=== PATIENT | male | born 1945 | race Caucasian/White ===

== ENCOUNTER 2017-08-22 08:55 | Inpatient (IN) | payer OTHER ==
[~2017-08-22] VITALS: Ht 188 cm; Wt 99.8 kg
[~2017-08-22 08:55] MED LIST: PRILOSEC 20 MG20 MG PO
[2017-08-22 09:24] LABS: URINE BILIRUBIN NEGATIVE (Negative); URINE BLOOD NEGATIVE (Negative); URINE CLARITY CLEAR; URINE COLOR YELLOW; URINE GLUCOSE-RANDOM* NEGATIVE (Negative); URINE KETONES NEGATIVE (Negative); URINE LEUKOCYTES NEGATIVE (Negative); URINE NITRITE NEGATIVE (Negative); URINE PROTEIN (DIPSTICK) NEGATIVE (Negative); URINE UROBILINOGEN 0.2 E.U./dl (0.2-1.0)
[2017-08-22 09:49] VITALS: BP 159/69
[2017-08-22 10:16] LABS: ABSOLUTE NEUTROPHILS 5.2 thou/uL (1.4-8.2); BASOPHILS 0.9 % (0.0-2.0); EOSINOPHILS 2.4 % (0.0-3.0); HEMATOCRIT 39.4 % (42.0-52.0); HEMOGLOBIN 13.2 gm/dL (14.0-18.0); LYMPHOCYTES 22.6 % (24.0-44.0); MCH 29.4 pg (26.0-34.0); MCHC 33.4 g/dL (28.0-37.0); MCV 87.9 fL (80.0-100.0); MONOCYTES 8.4 % (1.0-8.0); PLATELET COUNT 265 thou/uL (150-400); POLYS 65.7 % (36.0-66.0); RBC 4.48 mil/uL (4.50-6.00); RDW 13.1 % (10.5-14.5); WBC 7.9 thou/uL (4.0-11.0)
[2017-08-22 10:29] LABS: CALCIUM 9.3 mg/dL (8.5-10.1); POTASSIUM 4.2 mmol/L (3.5-5.1)
[2017-08-22 12:32] VITALS: BP 179/79
[2017-08-22 16:11] VITALS: BP 179/79
[2017-08-22 16:19] VITALS: BP 164/77
[2017-08-22 17:30] VITALS: BP 182/98
[2017-08-23 03:32] VITALS: BP 137/77
[2017-08-23 05:21] LABS: ABSOLUTE NEUTROPHILS 6.3 thou/uL (1.4-8.2); BASOPHILS 0.8 % (0.0-2.0); EOSINOPHILS 3.3 % (0.0-3.0); HEMATOCRIT 38.6 % (42.0-52.0); HEMOGLOBIN 12.8 gm/dL (14.0-18.0); LYMPHOCYTES 23.1 % (24.0-44.0); MCH 29.1 pg (26.0-34.0); MCHC 33.2 g/dL (28.0-37.0); MCV 87.5 fL (80.0-100.0); MONOCYTES 9.7 % (1.0-8.0); PLATELET COUNT 254 thou/uL (150-400); POLYS 63.1 % (36.0-66.0); RBC 4.41 mil/uL (4.50-6.00); RDW 13.2 % (10.5-14.5); WBC 9.9 thou/uL (4.0-11.0)
[2017-08-23 05:33] LABS: CALCIUM 8.5 mg/dL (8.5-10.1); CREATININE 1.7 mg/dL (0.7-1.3); POTASSIUM 4.3 mmol/L (3.5-5.1)
[2017-08-23 07:04] VITALS: BP 170/91
[2017-08-23] MEDS ORDERED: FLOMAX0.4 MG PO (10:00)
[2017-08-23 10:12] VITALS: BP 170/91
== END 2017-08-23 11:36 | disposition home or self-care (01) | DRG 683 ==
LOC: ER 08:55 → EROBS 12:10 → 4E 17:24
PROVIDERS: Family Medicine; Nurse Practitioner
DX: N17.9 Acute kidney failure, unspecified (principal); N13.8 Other obstructive and reflux uropathy; I10 Essential (primary) hypertension; R33.9 Retention of urine, unspecified
CPT/HCPCS: 10084

== ENCOUNTER 2017-09-24 11:56 | Emergency (ER) | payer OTHER ==
[~2017-09-24] VITALS: Ht 190.5 cm; Wt 99.8 kg
--- NOTE | ~2017-09-24 | EKG ---
[place] [address] [facility] [place] [address] ELECTROCARDIOGRAM REPORT Name: PATI MCGOWAN WILDA [id number] Admission: 09/24/17 Attend Phys: Discharge: 09/24/17 Date of : 45 Report #: [id number] THIS REPORT FOR: //name// [facility] ED Test Date: 2017-09-24 Test Time: 12:29:33 Pat Name: PATI MCGOWAN Department: Room: Gender: M Before School Babysitter: PRANAV : 1945 Requested By: Magdy Diamond Order Number: [id number] MD: Alfred Warner Measurements Intervals [place] Rate: 90 P: 54 HI: 171 QRS: 18 QRSD: 89 T: 34 QT: 334 QTc: 409 Interpretive Statements Sinus rhythm Baseline wander in lead(s) V2 No previous ECG available for comparison Electronically Signed On 09-25-2017 8:36:54 [employer] DEVELOPMENT ENGINEER by Alfred Warner [email or web address] <ELECTRONICALLY SIGNED> By: Alfred Warner MD, [facility] 09/25/17 0836 1229 1229 Alfred Warner MD, FACC /EPI
[~2017-09-24 11:56] MED LIST changes: +FLOMAX0.4 MG PO
[2017-09-24 12:45] LABS: BASOPHILS 1.1 % (0.0-2.0); HEMATOCRIT 37.3 % (42.0-52.0); HEMOGLOBIN 12.7 gm/dL (14.0-18.0); LYMPHOCYTES 19.8 % (24.0-44.0); MCH 29.2 pg (26.0-34.0); MCV 85.9 fL (80.0-100.0); MONOCYTES 10.2 % (1.0-8.0); PLATELET COUNT 449 thou/uL (150-400); POLYS 67.9 % (36.0-66.0); RBC 4.34 mil/uL (4.50-6.00); RDW 12.8 % (10.5-14.5); WBC 10.2 thou/uL (4.0-11.0)
[2017-09-24 12:51] LABS: URINE BILIRUBIN NEGATIVE (Negative); URINE BLOOD 3+ (Negative); URINE CLARITY CLEAR; URINE COLOR YELLOW; URINE GLUCOSE-RANDOM* NEGATIVE (Negative); URINE KETONES NEGATIVE (Negative); URINE LEUKOCYTES-REFLEX 1+ (Negative); URINE NITRITE-REFLEX NEGATIVE (Negative); URINE PROTEIN (DIPSTICK) 2+ (Negative); URINE SPECIFIC GRAVITY 1.015 (1.005-1.035); URINE UROBILINOGEN 0.2 E.U./dl (0.2-1.0)
[2017-09-24 12:51] LABS: ANION GAP 6 mmol/L (7-16); BUN 22 mg/dL (7-18); CALCIUM 9.1 mg/dL (8.5-10.1); CHLORIDE 105 mmol/L (98-107); CO2 26 mmol/L (21-32); CREATININE 1.3 mg/dL (0.7-1.3); GLUCOSE 92 mg/dL (74-106); POTASSIUM 4.3 mmol/L (3.5-5.1); SODIUM 137 mmol/L (136-145)
[2017-09-24 12:58] LABS: CASTS None Seen /LPF (None Seen); CRYSTALS None Seen /LPF (None Seen); SQUAMOUS None Seen /LPF (0-3); URINE RBC >20 Many /HPF (0-2); URINE WBC-REFLEX >25 Many /HPF (0-5)
[2017-09-24 12:59] LABS: BACTERIA-REFLEX >30 Many /HPF (None Seen)
[2017-09-24 13:00] LABS: ALBUMIN 2.8 g/dL (3.4-5.0); DIRECT BILIRUBIN 0.1 mg/dL (<0.1-0.3); SGOT 23 U/L (15-37); SGPT 55 U/L (30-65); TOTAL BILIRUBIN 0.4 mg/dL (<0.1-1.0); TOTAL PROTEIN 7.5 g/dL (6.4-8.2); TROPONIN-I < 0.04 ng/mL (<0.06)
[2017-09-24] MEDS ORDERED: CIPROFLOXACIN500 M1 PO (14:29)
[2017-09-24 14:36] VITALS: BP 153/78
== END 2017-09-24 15:18 | disposition home or self-care (01) ==
LOC: ER 11:56
PROVIDERS: Emergency Medicine
DX: N13.9 Obstructive and reflux uropathy, unspecified (principal); I10 Essential (primary) hypertension

== ENCOUNTER 2021-06-27 05:26 | Emergency (ER) | payer OTHER ==
[~2021-06-27] VITALS: Ht 190.5 cm; Wt 102.1 kg
[~2021-06-27 05:26] MED LIST changes: +CIPROFLOXACIN500 M1 PO
[2021-06-27 06:10] LABS: ABSOLUTE NEUTROPHILS 4.5 thou/uL (1.4-8.2); BASOPHILS 0.9 % (0.0-2.0); EOSINOPHILS 3.3 % (0.0-3.0); HEMOGLOBIN 15.5 gm/dL (14.0-18.0); LYMPHOCYTES 31.7 % (24.0-44.0); MCH 29.7 pg (26.0-34.0); MCHC 33.6 g/dL (28.0-37.0); MCV 88.4 fL (80.0-100.0); MONOCYTES 8.8 % (1.0-8.0); PLATELET COUNT 292 thou/uL (150-400); POLYS 55.3 % (36.0-66.0); RDW 13.7 % (10.5-14.5); WBC 8.1 thou/uL (4.0-11.0)
[2021-06-27 06:21] LABS: CALCIUM 8.8 mg/dL (8.5-10.1); CREATININE 1.4 mg/dL (0.7-1.3); POTASSIUM 4.3 mmol/L (3.5-5.1)
[2021-06-27 06:21] LABS: URINE BILIRUBIN NEGATIVE (Negative); URINE BLOOD 1+ (Negative); URINE COLOR YELLOW; URINE GLUCOSE-RANDOM* NEGATIVE (Negative); URINE KETONES NEGATIVE (Negative); URINE NITRITE-REFLEX NEGATIVE (Negative); URINE PROTEIN (DIPSTICK) NEGATIVE (Negative); URINE SPECIFIC GRAVITY 1.025 (1.005-1.035); URINE UROBILINOGEN 0.2 E.U./dl (0.2-1.0)
[2021-06-27 06:26] LABS: URINE CLARITY CLOUDY; URINE LEUKOCYTES-REFLEX 3+ (Negative)
[2021-06-27 06:27] LABS: ALBUMIN 3.4 g/dL (3.4-5.0); TOTAL BILIRUBIN 0.7 mg/dL (0.2-1.0); TOTAL PROTEIN 7.8 g/dL (6.4-8.2)
[2021-06-27 06:51] LABS: CASTS None Seen /LPF (None Seen); SQUAMOUS 0-3 Few /LPF (0-3)
[2021-06-27 06:52] LABS: BACTERIA-REFLEX >30 Many /HPF (None Seen); CRYSTALS None Seen /LPF (None Seen); URINE RBC 1-2 Rare /HPF (NONE SEEN); URINE WBC-REFLEX >25 Many /HPF (0-5)
[2021-06-27] MEDS ORDERED: CEPHALEXIN500 MG PO (07:32)
[2021-06-27] MEDS ORDERED: FLOMAX0.4 MG PO (07:32)
[2021-06-27 07:39] VITALS: BP 133/66
== END 2021-06-27 07:41 | disposition home or self-care (01) ==
LOC: ER 05:26
PROVIDERS: Emergency Medicine
DX: N39.0 Urinary tract infection, site not specified (principal); I10 Essential (primary) hypertension; Z79.899 Other long term (current) drug therapy